=== PATIENT | male | born 1960 | race African-American/Black ===

== ENCOUNTER 2021-07-05 15:51 | Outpatient (CLI) | payer OTHER | END 2021-07-05 15:52 | disposition home or self-care (01) | LOC: NAV RAD 15:51 | PROVIDERS: ATTEND Family Medicine | DX: R06.2 Wheezing (principal); R06.02 Shortness of breath | CPT/HCPCS: 71046 ==

== ENCOUNTER 2021-11-04 15:53 | Emergency (ER) | payer OTHER | END 2021-11-04 16:27 | disposition home or self-care (01) | LOC: NAV ERS 15:53 | DX: Z00.00 Encounter for general adult medical examination without abnormal findings (principal); I10 Essential (primary) hypertension; E78.5 Hyperlipidemia, unspecified; E78.00 Pure hypercholesterolemia, unspecified; F17.200 Nicotine dependence, unspecified, uncomplicated | CPT/HCPCS: 99281 ==

== ENCOUNTER 2024-08-12 15:01 | Emergency (ER) | payer OTHER ==
[2024-08-12 16:11] LABS: #Eosinphils 0.4 thou/uL (0.0-0.7); #Lymphocytes 2.5 thou/uL (1.20-3.40); #Monocytes 0.9 thou/uL (0.11-0.59); #Neutrophils 3.7 thou/uL (1.40-6.50); %Basophils 0.5 % (0.0-1.0); %Eosinophils 5.8 % (0.0-10.0); %Lymphocytes 33.1 % (21.0-51.0); %Monocytes 12.1 % (0.0-10.0); %Neutrophils 48.5 % (42.0-75.0); Hematocrit 38.5 % (42.0-52.0); Hemoglobin 11.9 g/dL (14.0-18.0); Mean Corpuscular HGB CONC 30.9 g/dL (32.0-36.0); Mean Corpuscular Hemoglobin 31.2 pg (27.0-31.0); Mean Platelet Volume 8.3 fL (7.4-10.4); Platelet Count 292 10x3/uL (130-400); RBC Distribution Width 12.8 % (11.5-14.5); Red Blood Cell (RBC) Count 3.82 mill/uL (4.70-6.10); White Blood Cell (WBC) Count 7.6 10x3/uL (4.8-10.8)
[2024-08-12 17:01] LABS: ALT (SGPT) 13 U/L (8-55); AST (SGOT) 20 U/L (5-34); Albumin 3.6 g/dL (3.4-4.8); Alkaline Phosphatase 76 U/L (40-110); Anion Gap 14 mmol/L (10-20); BUN (Urea Nitrogen) 10 mg/dL (8.4-25.7); Bilirubin, Total 0.3 mg/dL (0.2-1.2); Calc. Creatinine Clearance 0 mL/min (70-130); Carbon Dioxide 22 mmol/L (23-31); Chloride 106 mmol/L (98-107); Estimated GFR 97; Globulin 5.6 g/dL (2.4-3.5); Glucose 89 mg/dL (80-115); Lipase 14 U/L (8-78); Potassium 4.1 mmol/L (3.5-5.1); Protein, Total 9.2 g/dL (5.8-8.1); Sodium 138 mmol/L (136-145)
[2024-08-12] MEDS ORDERED: Aspirin Chewable 81 MG TAB ONE (17:11)
== END 2024-08-12 17:29 | disposition left against medical advice (07) ==
LOC: NAV ERS 15:01
DX: R07.9 Chest pain, unspecified (principal); R06.02 Shortness of breath; I10 Essential (primary) hypertension; E78.00 Pure hypercholesterolemia, unspecified; F17.200 Nicotine dependence, unspecified, uncomplicated; Z79.899 Other long term (current) drug therapy
CPT/HCPCS: 71045; 80053; 83690; 83880; 84484; 85025; 93005